=== PATIENT | female | born 1985 | race Caucasian/White ===

== ENCOUNTER 2025-01-16 08:25 | Day surgery (SDC) | payer BC ==
[2025-01-14 11:53] VITALS: BMI 23.3
[2025-01-16] MEDS ORDERED: AFRIN NASAL MIST 15 ML BOT ONE (08:29)
[2025-01-16] MEDS ORDERED: Oxymetazoline HCl 0.05% (15 ML) ONE (08:30)
[2025-01-16] MEDS ORDERED: Ondansetron PF 4 MG/2 ML Vial ONE (10:06)
[2025-01-16] MEDS ORDERED: Lidocaine 1% PF 5 ML VIAL ONE (10:06)
[2025-01-16] MEDS ORDERED: Rocuronium Bromide 10 MG/ML (10ML VIAL) ONE (10:06)
[2025-01-16] MEDS ORDERED: PROPOFOL 20 ML ONE (10:06)
[2025-01-16] MEDS ORDERED: SUGAMMADEX SODIUM 200 MG/2 ML VIAL ONE (10:07)
[2025-01-16] MEDS ORDERED: HYDROcodone/Acetaminophen 5/325 mg Tablet ONE (12:48)
== END 2025-01-16 13:20 | disposition home or self-care (01) ==
LOC: CSHSDC 08:25
PROVIDERS: ATTEND Otolaryngology Plastic Surgery within the Head & Neck
PROC: 09BM0ZZ Excision of Nasal Septum, Open Approach (ICD-10-PCS; principal; 2025-01-16)
PROC: 095L0ZZ Destruction of Nasal Turbinate, Open Approach (ICD-10-PCS; principal; 2025-01-16)
DX: J34.2 Deviated nasal septum (principal); J34.821 External nasal valve collapse; J34.3 Hypertrophy of nasal turbinates; J34.89 Other specified disorders of nose and nasal sinuses
CPT/HCPCS: J1100; J2250; J2405; J2704; J3010